=== PATIENT | female | born 1960 | race Caucasian/White ===

== ENCOUNTER → 2017-12-01 15:20 | Outpatient (CLI) | payer OTHER, SELFPAY ==
--- NOTE | 2017-12-01 15:20 | DT_ITS ---
This patient was seen during an EMR downtime November 27, 2017 - December 04, 2017. This patient may have a combination of paper and electronic documentation or all paper documentation. All documentation is viewable within the e-chart portion of [facility] (MM) for each patient visit.
--- NOTE | 2017-12-01 15:27 | CT_ITS ---
STUDY: CT LEFT FOOT REASON FOR EXAM: Female, 57 years old. Displaced fx of cuboid bone lt foot. RADIATION DOSAGE (If Supplied By Facility): CTDIvol = ( 15.35 ) mGy, DLP = ( 372.95 ) mGycm TECHNIQUE: Thin section transaxial imaging of the foot was obtained, with sagittal and coronal reconstructed images. Individualized dose optimization techniques were used for this CT. COMPARISON: None. FINDINGS: Fracture of the anterolateral distal tibial articular surface. This fracture is nondisplaced. Fracture of the dorsal lateral margin of the medial cuneiform bone. There is extension to the articular surface. Fracture fragments are noted in the tarsal joint space. Small avulsive fracture fragment of the dorsal lateral mid cuneiform bone. Fracture fragments extend into the joint space. Avulsive fracture of the anterolateral margin of the lateral cuneiform bone. Comminuted fracture of the cuboid bone. Small fracture fragments noted in the joint space. Fracture of the base of the fourth third and second metatarsal bone. These fractures extend to the articular surface. Fracture of the head of the fourth and fifth metatarsal bone. Normal visualized tibiotalar, subtalar, talonavicular, calcaneocuboid, and tarsometatarsal articulations. Normal metatarsophalangeal joint of the great toe. Normal tibial and fibular sesamoid bones. Normal interphalangeal joint of the great toe. Normal phalanges of the great toe. Normal second through fifth metatarsophalangeal joints. Normal interphalangeal joints and phalanges of the lesser toes. Soft tissue edema of the left ankle and foot. CT/Extremity Lower without Contra IMPRESSION: Fracture of the anterolateral distal tibial articular surface. This fracture is nondisplaced. Fracture of the dorsal lateral margin of the medial cuneiform bone. Fracture fragments are noted in the tarsal joint space. Small avulsive fracture fragment of the dorsal lateral mid cuneiform bone. Fracture fragments extend into the joint space. Avulsive fracture of the anterolateral margin of the lateral cuneiform bone. Comminuted fracture of the cuboid bone. Small fracture fragments noted in the joint space. Fracture of the base of the fourth third and second metatarsal bone. These fractures extend to the articular surface. Fracture of the head of the fourth and fifth metatarsal bone. Electronically Signed: Darnell Washburn MD at 16:48 EDT , Service support ,
== END ==
PROVIDERS: Family Provider Family Medicine; PCP Family Medicine; Visit Provider Specialist
DX: S92.212A Displaced fracture of cuboid bone of left foot, initial encounter for closed fracture (principal)
CPT/HCPCS: 73700

== ENCOUNTER → 2018-05-14 12:11 | Outpatient (CLI) | payer OTHER, SELFPAY ==
[2018-05-14 14:58] LABS: Anion Gap 9 (5-15); BUN 8 mg/dL (7-18); BUN/Creat Ratio 10.5 RATIO (10-20); Calcium,Total 9.2 mg/dL (8.5-10.1); Chloride 106 mmol/L (98-107); Cholesterol 183 mg/dL (200); Creatinine, Serum 0.76 mg/dL (0.55-1.02); EST Glomerular Filtration Rate 83 mL/min (>60); Est Glom Filt Rate - Afr Amer 101 mL/min (>60); Glucose 84 mg/dL (74-106); High Density Lipoprotein 82 mg/dL; Potassium 4.2 mmol/L (3.5-5.1); Sodium Level 139 mmol/L (136-145); Triglycerides 123 mg/dL; Very Low Density Lipoprotein 25 mg/dL (5-40)
== END ==
PROVIDERS: Family Provider Family Medicine; PCP Family Medicine; Referring Provider Family Medicine; Visit Provider Family Medicine
DX: I10 Essential (primary) hypertension (principal); Z13.220 Encounter for screening for lipoid disorders
CPT/HCPCS: 36415; 80048; 80061; 82306

== ENCOUNTER → 2018-08-09 08:00 | Outpatient (CLI) | payer OTHER, SELFPAY ==
[2018-08-09 10:25] LABS: Vitamin D,25 Hydroxy 57.7 ng/mL (29.95-100.01)
== END ==
PROVIDERS: Family Provider Family Medicine; PCP Family Medicine; Referring Provider Family Medicine; Visit Provider Family Medicine
DX: E55.9 Vitamin D deficiency, unspecified (principal)
CPT/HCPCS: 36415; 82306

== ENCOUNTER → 2020-11-27 | Outpatient (CLI) | payer OTHER, SELFPAY ==
[2020-12-01 13:25] LABS: HPV APTIMA, High Risk Negative (Negative)
[2020-12-01 13:27] LABS: HPV Reflexed? YES, CHARGE PATIENT
== END | disposition home or self-care (01) ==
PROVIDERS: Referring Provider Registered Nurse; Visit Provider Registered Nurse
DX: Z01.419 Encounter for gynecological examination (general) (routine) without abnormal findings (principal)
CPT/HCPCS: 87624; 88175; G0145

== ENCOUNTER → 2021-06-03 07:30 | Outpatient (CLI) | payer OTHER, SELFPAY ==
--- NOTE | 2021-06-03 07:34 | BI_ITS ---
MAMMOGRAPHY - BILATERAL SCREENING REASON FOR EXAM: Female, 61 years old. Routine annual screening examination. PERTINENT HISTORY: Aunt with breast cancer. Bilateral breast implants. TECHNIQUE: Digital bilateral breast james (3D mammographic acquisition) in the CC and MLO projections. 2-D mediolateral oblique (MLO) and craniocaudad (CC) views of both breasts were obtained. CAD: Full Field Digital Mammography with Computer Added Detection was performed. COMPARISON: Comparison is made with prior study dated 05/11/2016 and 08/29/2014. FINDINGS: Breast Composition: The breasts are almost entirely fatty. There are no dominant masses or suspicious calcifications. Stable appearance of the bilateral breast implants. No other significant abnormalities are identified. There has been no significant change since the prior study. BI/SCRN MAMM (CAD)W/JAMES BILAT IMPRESSION: Stable bilateral screening mammogram. Yearly follow-up mammogram recommended. (A) ASSESSMENT CATEGORY: BIRADS Category 2: Benign. A letter regarding these results will be sent to the patient by the facility within 30 days. Approximately 10% of breast cancers are not detected by mammography. A normal mammogram should not delay biopsy of a clinically suspicious abnormality. [id number] Electronically Signed: Gabriel Trimble MD at 8:31 EST , Service support ,
== END ==
PROVIDERS: PCP Family Medicine; Visit Provider Family Medicine
DX: Z12.31 Encounter for screening mammogram for malignant neoplasm of breast (principal); Z80.3 Family history of malignant neoplasm of breast
CPT/HCPCS: 77063; 77067

== ENCOUNTER → 2022-11-02 | Outpatient (CLI) | payer OTHER, SELFPAY ==
--- NOTE | 2022-11-02 09:28 | BI_ITS ---
MAMMOGRAPHY - BILATERAL SCREENING REASON FOR EXAM: Female, 62 years old. Routine annual screening examination. PERTINENT HISTORY: Aunt with breast cancer. Bilateral breast implants. TECHNIQUE: Digital bilateral breast james (3D mammographic acquisition) in the CC and MLO projections. 2-D mediolateral oblique (MLO) and craniocaudad (CC) views of both breasts were obtained. CAD: Full Field Digital Mammography with Computer Added Detection was performed. COMPARISON: Comparison is made with prior study June 03, 2021 and May 11, 2016. FINDINGS: Breast Composition: The breasts are almost entirely fatty. There are no dominant masses or suspicious calcifications. Stable appearance of the bilateral breast implants. No other significant abnormalities are identified. There has been no significant change since the prior study. BI/SCRN MAMM (CAD)W/JAMES BILAT IMPRESSION: Stable bilateral screening mammogram. Yearly follow-up mammogram recommended. (A) ASSESSMENT CATEGORY: BIRADS Category 2: Benign. A letter regarding these results will be sent to the patient by the facility within 30 days. Approximately 10% of breast cancers are not detected by mammography. A normal mammogram should not delay biopsy of a clinically suspicious abnormality. [id number] Electronically Signed: Gabriel Trimble MD at 10:42 EDT ,
--- NOTE | 2022-11-02 09:36 | BD_ITS ---
STUDY: DUAL ENERGY X-RAY ABSORPTIOMETRY / DXA REASON FOR EXAM: Female, 62 years old. [id number] TECHNIQUE: Bone Mineral Density (BMD) measurements of lumbar spine and bilateral hips were obtained. COMPARISON: None. FINDINGS: Lumbar Spine (L1-L4): g/cm2 (0.919) / T-score (-0.9) / Z-score (0.6) Findings are suggestive of normal bone density with a low fracture risk. Left Femur Total: g/cm2 (0.778) / T-score (-1.3) / Z-score (-0.3) Left Femoral Neck: g/cm2 (0.716) / T-score (-1.2) / Z-score (0.2) Right Femur Total: g/cm2 (0.755) / T-score (-1.5) / Z-score (-0.5) Right Femoral Neck: g/cm2 (0.688) / T-score (-1.5) / Z-score (-0.1) BD/Dexa Bone Density Study IMPRESSION: The patient is considered osteopenic as outlined below according to World Yemi Organization (WHO) criteria with a low fracture risk. Reference Information: The T-score is the number of standard deviations above or below the standard which is normal for young adults at their peak bone mineral density. The World Health Organization (WHO) interprets the T-scores as follows: Above -1 Normal bone density Between -1 and -2.5 Osteopenia Equal to / or below -2.5 Osteoporosis As a practical clinical guideline, osteopenia may be graded as follows: Mild -1 through -1.5 Moderate -1.6 through -2.0 Severe -2.1 through -2.4 The Z-score is the number of standard deviations above or below age-matched controls. A Z-score of less than -1.5 would be considered abnormal. References: 1. NIH Osteoporosis and Related Bone Diseases www osteo.org 2. International Society for Clinical Densitometry www iscd.org 3. National Osteoporosis Foundation www nof.org Electronically Signed: Gabriel Trimble MD at 9:02 EDT ,
== END | disposition home or self-care (01) ==
LOC: OPBI 09:25
PROVIDERS: PCP Family Medicine; Referring Provider Nurse Practitioner Family; Visit Provider Nurse Practitioner Family
DX: Z12.31 Encounter for screening mammogram for malignant neoplasm of breast (principal); Z78.0 Asymptomatic menopausal state
CPT/HCPCS: 77063; 77067; 77080

== ENCOUNTER → 2023-12-05 | Outpatient (CLI) | payer OTHER, SELFPAY ==
[2023-12-05 08:12] LABS: Mucous, Urine 0 SEEN /hpf (<or=2+); Red Blood Cells-Urine 0 SEEN /hpf (0-5)
[2023-12-05 10:03] LABS: Absolute Lymphocyte Count 2.19 X10^3/uL (0.83-4.51); Absolute Neutrophil Count 2.9 X10^3/uL (2.0-7.7); Basophil# 0.07 X10^3/uL; Basophil% 1.2 % (0-1); Eosinophil# 0.16 X10^3/uL; Eosinophils% 2.6 % (0-5); Hematocrit 42.2 % (37-47); Hemoglobin 14.2 g/dL (12.0-15.0); Lymphocyte # 2.19 X10^3/ul (0.83-4.51); Lymphocyte % 36.3 % (19-41); Mean Corp Hgb Conc 33.6 g/dL (32-36); Mean Corpuscular Hgb 30.6 pg (27.0-32.0); Mean Corpuscular Volume 90.9 fL (81-99); Mean Platelet Vol. 10.5 fl (6.2-12.0); Monocyte% 11.6 % (0-10); NRBC Flagged by Analyzer 0 % (0-5); Platelet Count 260 K/mm3 (150-450); RBC Distribution Width CV 13.6 % (11.6-14.6); RBC Distribution Width SD 45.6 fl (35.1-43.9); Red Blood Count 4.64 M/mm3 (4.2-5.4)
[2023-12-05 10:06] LABS: Color, Urine Yellow (Yellow); Glucose, Dipstick Normal (Normal); Ketone-Dipstick Negative (Negative); Leukocyte Esterase-Dipstick 25 /ul (Negative); Nitrite-Dipstick Negative (Negative); Occult Blood-Urine Negative /ul (Negative); Protein-Dipstick Negative (Negative); Urine Bilirubin Dipstick Negative (Negative); Urine Clarity Sl. Cloudy (Clear); Urine Urobilinogen Normal (Normal)
[2023-12-05 10:18] LABS: Bacteria 1+ /hpf (None Seen); Squamous Epithelial Cells - UA 5-10 SEEN /hpf (5-10); White Blood Cells 5-10 SEEN /hpf (0-5)
[2023-12-05 10:51] LABS: ALB/GLOB Ratio 1.1 RATIO (0.9-2.4); AST(SGOT) 21 U/L (15-37); Alanine Aminotransfer ALT/SGPT 28 U/L (13-56); Albumin, Serum 3.9 g/dL (3.2-5.0); Alkaline Phosphatase 72 U/L (45-117); Anion Gap 5 (5-15); BUN 17 mg/dL (7-18); BUN/Creat Ratio 20.4 RATIO (10-20); Calcium,Total 9.4 mg/dL (8.5-10.1); Chloride 102 mmol/L (98-107); Cholesterol 209 mg/dL (200); Creatinine, Serum 0.83 mg/dL (0.55-1.02); EST Glomerular Filtration Rate 74 mL/min (>60); Est Glom Filt Rate - Afr Amer 89 mL/min (>60); Globulin 3.6 g/dL (2.2-4.2); Glucose 88 mg/dL (74-106); High Density Lipoprotein 74 mg/dL; Potassium 3.3 mmol/L (3.5-5.1); Protein, Total 7.5 g/dL (6.4-8.2); Sodium Level 134 mmol/L (136-145); Thyroid Stim Hormone (TSH) 2.75 uIU/mL (0.358-3.74); Triglycerides 171 mg/dL; Very Low Density Lipoprotein 34 mg/dL (5-40)
[2023-12-05 11:08] LABS: Vitamin D,25 Hydroxy 23.7 ng/mL
== END | disposition home or self-care (01) ==
LOC: MTLAB 08:05
PROVIDERS: PCP Family Medicine; Referring Provider Family Medicine; Visit Provider Family Medicine
DX: I10 Essential (primary) hypertension (principal); E55.9 Vitamin D deficiency, unspecified
CPT/HCPCS: 36415; 80053; 80061; 81001; 82306; 84443; 85025

== ENCOUNTER → 2023-12-12 | Outpatient (CLI) | payer OTHER, SELFPAY ==
[2023-12-12 10:40] LABS: Anion Gap 10 (5-15); BUN 17 mg/dL (7-18); BUN/Creat Ratio 20.2 RATIO (10-20); Calcium,Total 9.4 mg/dL (8.5-10.1); Chloride 101 mmol/L (98-107); Creatinine, Serum 0.84 mg/dL (0.55-1.02); EST Glomerular Filtration Rate 73 mL/min (>60); Est Glom Filt Rate - Afr Amer 88 mL/min (>60); Glucose 104 mg/dL (74-106); Magnesium 2.2 mg/dL (1.6-2.6); Potassium 3.5 mmol/L (3.5-5.1); Sodium Level 138 mmol/L (136-145)
== END | disposition home or self-care (01) ==
LOC: MTLAB 08:01
PROVIDERS: PCP Family Medicine; Referring Provider Family Medicine; Visit Provider Family Medicine
DX: I10 Essential (primary) hypertension (principal)
CPT/HCPCS: 36415; 80048; 83735

== ENCOUNTER → 2023-12-22 | Outpatient (CLI) | payer OTHER, SELFPAY ==
--- NOTE | 2023-12-22 07:02 | BI_ITS ---
MAMMOGRAPHY - BILATERAL SCREENING 3-D TOMOSYNTHESIS REASON FOR EXAM: Female, 63 years old. screening PERTINENT HISTORY: No significant family history. TECHNIQUE: 2-D mammograms and 3-D Tomosynthesis of the breast (s) were performed. CAD was performed. COMPARISON: 11/02/2022 FINDINGS: The breast composition is composed of scattered fibroglandular density. Scattered benign calcifications are seen. No dense spiculated masses or suspicious microcalcifications are identified. No architectural distortion is identified. There is no skin thickening or retraction. There has been no significant change since the prior study. Bilateral retropectoral silicone implants appear intact. BI/SCRN MAMM (CAD)W/JAMES BILAT IMPRESSION: No mammographic signs of malignancy. Routine yearly mammograms recommended. ASSESSMENT CATEGORY: BIRADS Category 1: Negative. A letter regarding these results will be sent to the patient by the facility within 30 days. FOLLOW UP RECOMMENDATION: Yearly follow up mammogram recommended. (A) Approximately 10% of breast cancers are not detected by mammography. A normal mammogram should not delay biopsy of a clinically suspicious abnormality. Electronically Signed: Jarad Hill MD at 13:29 EDT ,
== END | disposition home or self-care (01) ==
LOC: OPBI 07:02
PROVIDERS: PCP Family Medicine; Referring Provider Family Medicine; Visit Provider Family Medicine
DX: Z12.31 Encounter for screening mammogram for malignant neoplasm of breast (principal)
CPT/HCPCS: 77063; 77067

== ENCOUNTER → 2024-06-05 | Outpatient (CLI) | payer OTHER, SELFPAY ==
[2024-06-05 07:27] LABS: Mucous, Urine 0 SEEN /hpf (<or=2+); Red Blood Cells-Urine 0 SEEN /hpf (0-5)
[2024-06-05 10:09] LABS: Absolute Lymphocyte Count 1.92 X10^3/uL (0.83-4.51); Absolute Neutrophil Count 2.9 X10^3/uL (2.0-7.7); Basophil# 0.09 X10^3/uL; Basophil% 1.6 % (0-1); Eosinophil# 0.09 X10^3/uL; Eosinophils% 1.6 % (0-5); Hematocrit 41.9 % (37-47); Hemoglobin 14.1 g/dL (12.0-15.0); Lymphocyte # 1.92 X10^3/ul (0.83-4.51); Mean Corp Hgb Conc 33.7 g/dL (32-36); Mean Corpuscular Hgb 31.4 pg (27.0-32.0); Mean Corpuscular Volume 93.3 fL (81-99); Mean Platelet Vol. 10.8 fl (6.2-12.0); Monocyte# 0.63 X10^3/uL; Monocyte% 11.2 % (0-10); NRBC Flagged by Analyzer 0 % (0-5); Neutrophil % 51.2 % (47-70); Platelet Count 224 K/mm3 (150-450); RBC Distribution Width CV 13.6 % (11.6-14.6); Red Blood Count 4.49 M/mm3 (4.2-5.4); White Blood Count 5.7 K/mm3 (4.4-11.0)
[2024-06-05 10:27] LABS: Vitamin D,25 Hydroxy 33.6 ng/mL
[2024-06-05 10:31] LABS: Color, Urine Yellow (Yellow); Glucose, Dipstick Normal (Normal); Ketone-Dipstick Negative (Negative); Leukocyte Esterase-Dipstick 25 /ul (Negative); Nitrite-Dipstick Negative (Negative); Occult Blood-Urine Negative /ul (Negative); Protein-Dipstick 15 mg/dl (Negative); Urine Bilirubin Dipstick Negative (Negative); Urine Clarity Sl. Cloudy (Clear); Urine Urobilinogen Normal (Normal)
[2024-06-05 10:32] LABS: ALB/GLOB Ratio 1.1 RATIO (0.9-2.4); AST(SGOT) 25 U/L (15-37); Alanine Aminotransfer ALT/SGPT 29 U/L (13-56); Albumin, Serum 3.9 g/dL (3.2-5.0); Alkaline Phosphatase 57 U/L (45-117); Anion Gap 8 (5-15); BUN 12 mg/dL (7-18); BUN/Creat Ratio 14.3 RATIO (10-20); Calcium,Total 9.5 mg/dL (8.5-10.1); Chloride 105 mmol/L (98-107); Cholesterol 210 mg/dL (200); Creatinine, Serum 0.84 mg/dL (0.55-1.02); EST Glomerular Filtration Rate 73 mL/min (>60); Est Glom Filt Rate - Afr Amer 88 mL/min (>60); Globulin 3.5 g/dL (2.2-4.2); Glucose 100 mg/dL (74-106); High Density Lipoprotein 88 mg/dL; Potassium 3.9 mmol/L (3.5-5.1); Protein, Total 7.4 g/dL (6.4-8.2); Sodium Level 137 mmol/L (136-145); Triglycerides 199 mg/dL; Very Low Density Lipoprotein 40 mg/dL (5-40)
[2024-06-05 10:38] LABS: Bacteria 1+ /hpf (None Seen); Squamous Epithelial Cells - UA 5-10 SEEN /hpf (5-10); White Blood Cells 0-5 SEEN /hpf (0-5)
== END | disposition home or self-care (01) ==
LOC: MTLAB 07:23
PROVIDERS: PCP Family Medicine; Referring Provider Family Medicine; Visit Provider Family Medicine
DX: I10 Essential (primary) hypertension (principal); E55.9 Vitamin D deficiency, unspecified
CPT/HCPCS: 36415; 80053; 80061; 81001; 82306; 84443; 85025

== ENCOUNTER 2024-08-04 06:18 | Emergency (ER) | payer OTHER, SELFPAY ==
[2024-08-04] VITALS (7 sets, daily range): BP systolic 115–159; BP diastolic 76–89; PULSE 57–91; RESP 14–16; TEMP 36.3; O2SAT 95–99; BMI 26.8
--- NOTE | 2024-08-04 06:27 | ED.VIS.CHEST ---
HPI <Dr. Turner Rivera, DO - Last Filed: 08/04/24 08:22> History of Present Illness Chief Complaint: Chest Pain Narrative Narrative: Chief complaint and HPI: Chest pain. 64-year-old female with past medical history of HTN presents for evaluation of chest pain. Patient states her chest pain began around 4 AM when she was getting ready to go to bed. Patient states that she accidentally fell asleep on the couch around 2 AM. She states she took 2 baby aspirin but the pain did not improve. She describes it as cramping and located under her left breast. She states that it radiates to her back. Associated symptom is nausea secondary to the pain. She denies any fever, chills URI symptoms, cough, shortness of breath, abdominal pain. Not a tobacco abuser. Denies a history of DVT/PE, blood clotting disorder, recent trauma or surgery, exogenous estrogen use, unilateral leg swelling, known malignancy, travel. Denies any bilateral lower extremity swelling or edema. Review of systems: See HPI Medications: As listed on the chart Allergies: As listed on the chart PFSH: Per chart Vital signs: As listed on the chart. Reviewed. Physical exam: Gen: A&O x3 Head: Normocephalic, atraumatic Eyes: No sclera icterus, conjunctiva clear ENT: Moist mucous membranes Neck: Trachea midline, No JVD CV: RRR, no murmurs, no peripheral edema, chest pain nonreproducible, Resp: Lungs CTA BL, no w/r/c GI: Abd soft, non-distended, non-tender, no r/r/g : No CVA tenderness Musc: Full ROM, no deformity, no midline spinal tenderness, no bony step-off, radial and ulnar pulses +2 bilaterally, Skin: Warm, dry Neuro: Alert, oriented, grossly intact, sensation intact Psych: Cooperative, appropriate mood and affect [facility] <Dr. Turner Rivera, DO - Last Filed: 08/04/24 08:22> [facility] Medical History (Updated 08/04/24 @ 06:23 by Giancarlo Boles) HTN (hypertension) Home Medications ?Medication ?Instructions ?Recorded ?Last Taken ?Type lisinopril 20 1 tab PO DAILY 08/04/24 Unknown History mg-hydrochlorothiazide 25 mg tablet Allergy/AdvReac Type Severity Reaction Status Date / Time codeine AdvReac Vomiting Verified 08/04/24 06:52 Social History Smoking Status: Never smoker EXAM <Dr. Turner Rivera, DO - Last Filed: 08/04/24 08:22> Physical Exam Const Vital Signs: 08/04/24 06:21 08/04/24 06:22 08/04/24 06:44 Temperature 97.3 F L Temperature Source Temporal Pulse Rate 70 Respiratory Rate 16 Respiratory Effort Normal Blood Pressure 159/89 H Blood Pressure Mean 112 Pulse Ox 98 97 Oxygen Delivery Method Room Air Room Air 08/04/24 07:18 08/04/24 07:59 08/04/24 08:56 Temperature Temperature Source Pulse Rate 57 L 91 Respiratory Rate 16 Respiratory Effort Blood Pressure 144/84 H 128/78 H 121/76 H Blood Pressure Mean 104 94 91 Pulse Ox 99 Oxygen Delivery Method 08/04/24 09:15 08/04/24 10:15 Temperature 97.3 F L Temperature Source Pulse Rate 70 67 Respiratory Rate 14 Respiratory Effort Blood Pressure 115/79 128/78 H Blood Pressure Mean 91 94 Pulse Ox 97 95 Oxygen Delivery Method Room Air <Dr. Tate Curran, DO - Last Filed: 08/04/24 16:12> Physical Exam Const Vital Signs: 08/04/24 06:21 08/04/24 06:22 08/04/24 06:44 Temperature 97.3 F L Temperature Source Temporal Pulse Rate 70 Respiratory Rate 16 Respiratory Effort Normal Blood Pressure 159/89 H Blood Pressure Mean 112 Pulse Ox 98 97 Oxygen Delivery Method Room Air Room Air 08/04/24 07:18 08/04/24 07:59 08/04/24 08:56 Temperature Temperature Source Pulse Rate 57 L 91 Respiratory Rate 16 Respiratory Effort Blood Pressure 144/84 H 128/78 H 121/76 H Blood Pressure Mean 104 94 91 Pulse Ox 99 Oxygen Delivery Method 08/04/24 09:15 08/04/24 10:15 Temperature 97.3 F L Temperature Source Pulse Rate 70 67 Respiratory Rate 14 Respiratory Effort Blood Pressure 115/79 128/78 H Blood Pressure Mean 91 94 Pulse Ox 97 95 Oxygen Delivery Method Room Air MDM <Dr. Turner Rivera, DO - Last Filed: 08/04/24 08:22> MDM MDM Narrative Medical decision making narrative: 64-year-old female with past medical history of HTN presents for evaluation of chest pain. Differential diagnosis includes but is not limited to ACS, electrolyte abnormality, myofascial spasm, PE, GERD, pancreatitis. Cardiac/respiratory workup ordered. Patient already received 2 baby aspirin prior to arrival therefore another 2 ordered. She was given Zofran and morphine for symptoms. NS bolus ordered. EKG reviewed see below. CBC without leukocytosis or anemia. Coagulation panel unremarkable. D-dimer unremarkable. The rest of the labs pending at this time. Final disposition pending oncoming physician Dr. Curran. Patient was signed out to him. EKG: Interpreted by me/EM physician: EKG shows normal sinus rhythm. No ST elevation. Heart rate 66. Diagnostic: Interpreted by me/EM physician: Chest x-ray without pneumonia, effusion, pneumothorax, cardiomegaly Lab Data Labs: Laboratory Results - last 24 hr 08/04/24 08/04/24 06:55 09:15 WBC 8.0 RBC 4.30 Hgb 14.0 Hct 39.5 MCV 91.9 MCH 32.6 H MCHC 35.4 RDW Std Deviation 44.8 H RDW Coeff of Rand 13.3 Plt Count 248 MPV 9.6 Immature Gran % (Auto) 0.400 Neut % (Auto) 66.9 Lymph % (Auto) 19.3 Nicollet % (Auto) 11.4 H Eos % (Auto) 1.1 Baso % (Auto) 0.9 Absolute Neuts (auto) 5.3 Absolute Lymphs (auto) 1.54 Nucleated RBC % 0 PT 12.3 INR 0.9 APTT 23.4 L D-Dimer Quant (PE/DVT) 0.44 Sodium 135 L Potassium 3.4 L Chloride 98 Carbon Dioxide 27.0 Anion Gap 10 BUN 18 Creatinine 0.78 Estim Creat Clear Calc 68.67 Est GFR (MDRD) Af Amer 95 Est GFR (MDRD) Non-Af 79 BUN/Creatinine Ratio 22.9 H Glucose 116 H Calcium 9.5 Total Bilirubin 0.60 AST 17 ALT 22 Alkaline Phosphatase 53 Troponin I High Sens 4 5 B-Natriuretic Peptide 39.1 Total Protein 7.7 Albumin 4.3 Globulin 3.4 Albumin/Globulin Ratio 1.3 Lipase 73 Radiography Diagnostic Testing: Clinical Impression(s) from Imaging Studies Chest X-Ray 08/04/24 07:04 IMPRESSION: No acute cardiopulmonary process is demonstrated. If there is persistent pain or clinical concern, short-term follow-up CT evaluation may be considered. Reading Location: [facility] <Dr. Tate Curran, DO - Last Filed: 08/04/24 16:12> [facility] Narrative Medical decision making narrative: 64-year-old female with past medical history of HTN presents for evaluation of chest pain. Differential diagnosis includes but is not limited to ACS, electrolyte abnormality, myofascial spasm, PE, GERD, pancreatitis. Cardiac/respiratory workup ordered. Patient already received 2 baby aspirin prior to arrival therefore another 2 ordered. She was given Zofran and morphine for symptoms. NS bolus ordered. EKG reviewed see below. CBC without leukocytosis or anemia. Coagulation panel unremarkable. D-dimer unremarkable. The rest of the labs pending at this time. Final disposition pending oncoming physician Dr. Curran. Patient was signed out to him. EKG: Interpreted by me/EM physician: EKG shows normal sinus rhythm. No ST elevation. Heart rate 66. Diagnostic: Interpreted by me/EM physician: Chest x-ray without pneumonia, effusion, pneumothorax, cardiomegaly Patient was turned over to me by Dr. Sweeney @ 8:30 AM Brief history: 64-year-old female here with chest pain Physical exam: No focal cardiopulmonary abnormalities. No pulse deficits. No pulsatile abdominal masses. No auscultated abdominal bruits. No calf tenderness. No lower extremity edema Labs and images reviewed (if obtained): I have personally reviewed the patient's chest x-ray. Chest x-ray is unremarkable for pulmonary edema, pneumothorax, pneumonia or focal cardiopulmonary abnormality. D-dimer negative making VTE less likely BNP within normal meds making heart failure less likely High-sensitivity troponin is negative, no evidence of myocardial ischemia x 2 CBC without leukocytosis, severe anemia, no thrombocytopenia. No coagulopathy CMP without evidence of acute kidney injury, significant electrolyte abnormality, anion gap to suggest end organ hypo-perfusion, no evidence of metabolic acidosis with a normal bicarbonate, no evidence of hepatobiliary obstructive pathology. The synthesis of the patient's history, physical exam, labs images suggest no acute life-limiting etiology specifically no sign of ACS, dissection, PE, pneumonia, pneumothorax, heart failure. On re-evaluation patient essentially asymptomatic. She is point for discharge home. MDM/plan: Discharge Lab Data Labs: Laboratory Results - last 24 hr 08/04/24 08/04/24 06:55 09:15 WBC 8.0 RBC 4.30 Hgb 14.0 Hct 39.5 MCV 91.9 MCH 32.6 H MCHC 35.4 RDW Std Deviation 44.8 H RDW Coeff of Rand 13.3 Plt Count 248 MPV 9.6 Immature Gran % (Auto) 0.400 Neut % (Auto) 66.9 Lymph % (Auto) 19.3 Nicollet % (Auto) 11.4 H Eos % (Auto) 1.1 Baso % (Auto) 0.9 Absolute Neuts (auto) 5.3 Absolute Lymphs (auto) 1.54 Nucleated RBC % 0 PT 12.3 INR 0.9 APTT 23.4 L D-Dimer Quant (PE/DVT) 0.44 Sodium 135 L Potassium 3.4 L Chloride 98 Carbon Dioxide 27.0 Anion Gap 10 BUN 18 Creatinine 0.78 Estim Creat Clear Calc 68.67 Est GFR (MDRD) Af Amer 95 Est GFR (MDRD) Non-Af 79 BUN/Creatinine Ratio 22.9 H Glucose 116 H Calcium 9.5 Total Bilirubin 0.60 AST 17 ALT 22 Alkaline Phosphatase 53 Troponin I High Sens 4 5 B-Natriuretic Peptide 39.1 Total Protein 7.7 Albumin 4.3 Globulin 3.4 Albumin/Globulin Ratio 1.3 Lipase 73 Radiography Diagnostic Testing: Clinical Impression(s) from Imaging Studies Chest X-Ray 08/04/24 07:04 IMPRESSION: No acute cardiopulmonary process is demonstrated. If there is persistent pain or clinical concern, short-term follow-up CT evaluation may be considered. Reading Location: [facility] Discharge Plan Triage Chief Complaint: Chest Pain ED Provider: Turner Rivera Dx/Rx/DC Orders Instructions: ED Chest Pain, Uncertain Cause Prescriptions: No Action lisinopril-hydrochlorothiazide 20-25 mg tablet 1 tab PO DAILY Primary Care Provider: Feliberto Alas Referrals: Feliberto Alas MD [Primary Care Provider] - Activity Restrictions/Additional Instructions: Thank you for trusting us with your care today! Your labs and images were reassuring. Specifically there is no sign of damage to your heart, heart failure, blood clots or other life-threatening abnormalities in your chest. Please a daily aspirin (81 mg) Please return to the emergency department if your symptoms change or worsen. Please follow with your primary care physician for further outpatient evaluation and management. Print Language: Estonian Disposition Disposition: Home, Self Care Discharge Date/Time: 08/04/24 10:18
--- NOTE | 2024-08-04 06:33 | EKG12_ITS ---
Test Reason : CP Blood Pressure : */* mmHG Vent. Rate : 66 BPM Atrial Rate : 66 BPM P-R Int : 166 ms QRS Dur : 80 ms QT Int : 442 ms P-R-T Axes : 78 -17 31 degrees QTcB Int : 463 ms Normal sinus rhythm Low voltage QRS Nonspecific ST abnormality Abnormal ECG Confirmed by SUSU BRUMFIELD, SHAYNE ([id number]), editor farm journal NEISHA RODRIGUEZ ([id number]) on 08/05/2024 11:06:51 AM Referred By: NELI Confirmed By: SHAYNE CRISTOBAL MD
[2024-08-04] MEDS: Ondansetron 4 MG/2 ML Vial IV (06:53)
[2024-08-04] MEDS: Morphine 4 MG/ML Syringe IV (06:53)
[2024-08-04] MEDS: Aspirin 81 MG TAB.CHEW 162 MG PO (06:55)
[2024-08-04] MEDS: 0.9% Normal Saline (1000mL) 1,000 ML 999 ML IV (06:55)
--- NOTE | 2024-08-04 07:04 | RAD_ITS ---
PROCEDURE: PA and lateral chest radiographs, two views REASON FOR EXAM: Chest pain TECHNIQUE: PA and lateral chest radiographs, two views COMPARISON: None. FINDINGS: The cardiomediastinal silhouette is within normal limits. Thoracic aorta mildly tortuous. No pneumothorax, focal airspace consolidation, or pleural effusion. Mild elevation right hemidiaphragm. Bones are osteopenic with degenerative changes in the spine. RAD/Chest PA and Lateral IMPRESSION: No acute cardiopulmonary process is demonstrated. If there is persistent pain or clinical concern, short-term follow-up CT evaluation may be considered. Reading Location: [facility]
[2024-08-04 07:11] LABS: Absolute Lymphocyte Count 1.54 X10^3/uL (0.83-4.51); Absolute Neutrophil Count 5.3 X10^3/uL (2.0-7.7); Basophil# 0.07 X10^3/uL; Basophil% 0.9 % (0-1); Eosinophil# 0.09 X10^3/uL; Eosinophils% 1.1 % (0-5); Hematocrit 39.5 % (37-47); Lymphocyte # 1.54 X10^3/ul (0.83-4.51); Lymphocyte % 19.3 % (19-41); Mean Corp Hgb Conc 35.4 g/dL (32-36); Mean Corpuscular Hgb 32.6 pg (27.0-32.0); Mean Corpuscular Volume 91.9 fL (81-99); Mean Platelet Vol. 9.6 fl (6.2-12.0); Monocyte# 0.91 X10^3/uL; Monocyte% 11.4 % (0-10); NRBC Flagged by Analyzer 0 % (0-5); Neutrophil # 5.33 X10^3/uL (2.7-7.7); Neutrophil % 66.9 % (47-70); Platelet Count 248 K/mm3 (150-450); RBC Distribution Width CV 13.3 % (11.6-14.6); RBC Distribution Width SD 44.8 fl (35.1-43.9)
[2024-08-04 07:19] LABS: International Normalized Ratio 0.9; Prothrombin Time (Protime)PT. 12.3 SECONDS (11.7-14.9)
[2024-08-04 07:20] LABS: Partial Thromboplast Time 23.4 Seconds (24.1-36.2)
[2024-08-04 07:36] LABS: D-Dimer Quantitative (DVT/PE) 0.44 FEU/ug/m (0.27-0.49)
[2024-08-04 08:31] LABS: ALB/GLOB Ratio 1.3 RATIO (0.9-2.4); AST(SGOT) 17 U/L (15-37); Alanine Aminotransfer ALT/SGPT 22 U/L (13-56); Albumin, Serum 4.3 g/dL (3.2-5.0); Alkaline Phosphatase 53 U/L (45-117); Anion Gap 10 (5-15); BUN 18 mg/dL (7-18); BUN/Creat Ratio 22.9 RATIO (10-20); Calcium,Total 9.5 mg/dL (8.5-10.1); Chloride 98 mmol/L (98-107); Creatinine, Serum 0.78 mg/dL (0.55-1.02); EST Glomerular Filtration Rate 79 mL/min (>60); Est Glom Filt Rate - Afr Amer 95 mL/min (>60); Estimated Creatinine Clearance 68.67 ml/min; Globulin 3.4 g/dL (2.2-4.2); Glucose 116 mg/dL (74-106); Lipase 73 U/L (73-393); Potassium 3.4 mmol/L (3.5-5.1); Protein, Total 7.7 g/dL (6.4-8.2); Sodium Level 135 mmol/L (136-145); Troponin-I HS (w/2H Reflex) 4 pg/mL (3.0-54.0)
[2024-08-04 09:06] LABS: Reflex Troponin-HS? (from REC) Y
[2024-08-04 09:19] LABS: BNP,B-Type NATRIURETIC PEPTIDE 39.1 pg/mL (0-100)
[2024-08-04 09:43] LABS: Troponin-I HS 5 pg/mL (3.0-54.0)
== END 2024-08-04 10:18 | disposition home or self-care (01) ==
PROVIDERS: Emergency Provider Surgery; PCP Family Medicine; Visit Provider Surgery
DX: R07.9 Chest pain, unspecified (principal); I10 Essential (primary) hypertension; Z79.899 Other long term (current) drug therapy
CPT/HCPCS: 71046; 80053; 83690; 83880; 84484; 85025; 85379; 85610; 85730; 93005; 96361; 96374; 96375; 99284; A4216; J2405

== ENCOUNTER 2025-05-04 14:01 | Emergency (ER) | payer BC, OTHER, SELFPAY ==
[2025-05-04 14:01] VITALS: BP 143/83; PULSE 73; RESP 16; TEMP 36.8; O2SAT 98; BMI 25.2
[2025-05-04 15:02] VITALS: BP 131/86; PULSE 65; RESP 18; O2SAT 97
--- NOTE | 2025-05-04 15:32 | EKG12_ITS ---
Test Reason : HIGH BP
--- NOTE | 2025-05-04 15:32 | RAD_ITS ---
PROCEDURE: RAD/Chest PA and Lateral
--- NOTE | 2025-05-04 15:33 | EX.ED.DYSGE1 ---
HPI History of Present Illness Chief Complaint: Hypertension Onset/Context/Timing Onset: Today Context: Gradual Onset Timing: Continuous Quality: Dizzy Location: Generalized Worsened by: Stress Relieved by: Tylenol Narrative Narrative: Patient presents with elevated blood pressures that she noticed today. Patient states she took her blood pressure at home and it was 137/99. Patient states she sat and relaxed and repeated her blood pressure and it was 139/99. Patient states she took a dose of amlodipine which she had from a previous prescription. Patient took her blood pressure after that and it was 155/99. Patient states she feels dizzy. Patient states that her blood pressure goes up with stress. Patient states she took some Tylenol which seemed to help with it. Patient denies any fevers or chills. Patient admits to a mild headache. Patient denies any chest pain or shortness of breath. Patient denies any nausea or vomiting. [facility] Medical History HTN (hypertension) Home Medications ?Medication ?Instructions ?Recorded ?Last Taken ?Type lisinopril 20 1 tab PO DAILY 08/04/24 Unknown History mg-hydrochlorothiazide 25 mg tablet Allergy/AdvReac Type Severity Reaction Status Date / Time codeine AdvReac Vomiting Verified 05/04/25 14:03 Surgical History no surgical history no surgical history Social History Smoking Status: Never smoker ROS ROS ED Constitutional Constitutional ED: Denies chills or fever(s) Eyes Eyes: Denies blurry vision or change in vision ENT ENT ED: Denies rhinorrhea or sore throat Cardiovascular Cardiovascular: Denies chest pain or palpitations Respiratory/Chest Respiratory/Chest: Denies cough or dyspnea Gastrointestinal Gastrointestinal: Denies nausea or vomiting Genitourinary Genitourinary ED: Denies dysuria or hematuria Musculoskeletal Musculoskeletal: Denies back pain or neck pain Integumentary Denies abscess or rash Neurologic Neurologic: Reports headache(s); Denies weakness Allergic/Immunologic Allergic/Immunologic ED: Denies mouth swelling or urticaria EXAM Physical Exam Const Vital Signs: 05/04/25 14:01 05/04/25 15:00 05/04/25 15:02 Temperature 98.2 F Temperature Source Oral Pulse Rate 73 65 Respiratory Rate 16 18 Respiratory Effort Normal Non-Labored Respiratory Pattern Normal Blood Pressure 143/83 H 131/86 H Blood Pressure Mean 103 101 Pulse Ox 98 97 Oxygen Delivery Method Room Air Room Air 05/04/25 17:00 05/04/25 18:05 Temperature 97.8 F Temperature Source Pulse Rate 59 L 59 L Respiratory Rate 14 20 H Respiratory Effort Respiratory Pattern Blood Pressure 134/87 H 137/83 H Blood Pressure Mean 102 101 Pulse Ox 98 98 Oxygen Delivery Method Room Air Positive well nourished and well developed General Appearance ED: well developed and NAD HEENT Reports moist mucous membranes Neck supple and no JVD Resp normal respiratory effort and clear to auscultation bilaterally Cardio regular rate and regular rhythm GI non-tender and non-distended Palpation: soft Extremity normal to inspection General Extremety ED: Negative for edema or tenderness General Extremity: Negative for edema Neuro oriented x3, CN's II-XII intact bilaterally and no sensory deficits noted Sensorium / Orientation: alert Motor Exam: strength 5/5 throughout Psych mental status grossly normal MDM MDM MDM Narrative Medical decision making narrative: Differential diagnosis includes hypertensive urgency, hypertensive emergency, cardiac dysrhythmia, cardiac ischemia, electrolyte abnormality, and anxiety. EKG will be obtained to assess for cardiac dysrhythmia and cardiac ischemia. Chest x-ray will be obtained to assess for pneumonia or bronchitis. CBC will be obtained to assess for leukocytosis and anemia. Basic metabolic profile will be obtained to assess for electrolyte abnormality renal function. High-sensitivity troponin will be obtained to assess for cardiac ischemia. 2-hour repeat high-sensitivity troponin will be obtained to assess for ongoing cardiac ischemia. Urinalysis will be obtained to assess for urinary tract infection and hematuria. History & Record Review Additional record(s) reviewed:: Prior ED visit and Prior labs Lab Data Attestation: I reviewed the patient's lab results. Lab results narrative: CBC was reviewed and was within normal limits. Basic metabolic profile was reviewed and was within normal limits. High-sensitivity troponin was reviewed and was less than 6. Urinalysis was reviewed. There are positive nitrites with 0-5 white blood cells. There is 4+ bacteria. Leukocyte esterase was negative. Labs: Laboratory Results - last 24 hr 05/04/25 05/04/25 05/04/25 16:05 16:48 17:35 WBC 6.6 RBC 4.03 L Hgb 12.9 Hct 38.1 MCV 94.5 MCH 32.0 MCHC 33.9 RDW Std Deviation 46.0 H RDW Coeff of Rand 13.2 Plt Count 272 MPV 9.6 Immature Gran % (Auto) 0.300 Neut % (Auto) 56.4 Lymph % (Auto) 32.6 Gregory % (Auto) 9.0 Eos % (Auto) 0.5 Baso % (Auto) 1.2 H Absolute Neuts (auto) 3.7 Absolute Lymphs (auto) 2.14 Nucleated RBC % 0 Sodium 137 Potassium 3.8 Chloride 100 Carbon Dioxide 26.4 Anion Gap 11 BUN 9 Creatinine 0.58 L Estim Creat Clear Calc 88.53 Est GFR (MDRD) Non-Af 101 BUN/Creatinine Ratio 15.5 Glucose 93 Calcium 9.5 Troponin T High Sens < 6 Troponin T Hi Sens 2 Hr 9 Urine Color Straw Urine Clarity Clear Urine pH 6.0 Ur Specific [place] 1.015 Urine Protein Negative Urine Glucose (UA) NEGATIVE Urine Ketones 5 H Urine Occult Blood 10 H Urine Nitrite Positive H Urine Bilirubin Negative Urine Urobilinogen Normal Ur Leukocyte Esterase Negative Urine RBC 0-5 SEEN Urine WBC 0-5 SEEN Ur Squamous Epith Cells 0-5 SEEN Urine Bacteria 4+ Urine Mucus 0 SEEN Radiography Chest X-Ray - ED: 2 View, Read by ED Physician, Read by Radiologist and No Acute Disease Diagnostic Testing: Clinical Impression(s) from Imaging Studies Chest X-Ray 05/04/25 15:32 IMPRESSION: No acute cardiopulmonary disease. Reading Location: [facility] EKG Initial EKG: Attestation: I personally reviewed and interpreted this EKG as follows: Interpretation: No Acute Injury Pattern and Sinus Bradycardia (57) Comments: EKG was obtained. On my independent interpretation, it showed a sinus bradycardia with a rate of 57. IA interval, QRS interval, and QTc intervals were all normal. [place] was normal. There are no acute ST or T wave changes. Prior EKG tracings: available for review Prior: Unchanged (08/04/2024) Additional Tests and Interventions Additional Tests or Interventions: Urine culture was ordered. Treatment and Re-Evaluation :: Patient was advised of her findings. Patient's repeat blood pressure was 128/96. Patient was instructed to continue to monitor her blood pressure. Patient was advised of signs and symptoms which should prompt return to the emergency department. Patient was instructed to follow-up with her primary care physician in 5 to 7 days for further evaluation and possible medication changes. Patient understood and was agreeable with the plan. All questions were answered. Discharge Plan Triage Chief Complaint: Hypertension ED Provider: Jairo Damian Dx/Rx/DC Orders Clinical Impression: Hypertension, Elevated blood pressure reading Instructions: ED Hypertension, Established Prescriptions: No Action lisinopril-hydrochlorothiazide 20-25 mg tablet 1 tab PO DAILY Primary Care Provider: Feliberto Alas Referrals: Feliberto Alas MD [Primary Care Provider, Family Practice] - 5-7 Days Print Language: Luxembourger Disposition Disposition: Home, Self Care Discharge Date/Time: 05/04/25 18:14
[2025-05-04 16:18] LABS: Hematocrit 38.1 % (37-47); Hemoglobin 12.9 g/dL (12.0-15.0); Immature Granulocytes Count 0.020 X10^3/uL (0.0-0.0); Mean Corp Hgb Conc 33.9 g/dL (32-36); Mean Corpuscular Volume 94.5 fL (81-99); Mean Platelet Vol. 9.6 fl (6.2-12.0); NRBC Flagged by Analyzer 0 % (0-5); Platelet Count 272 K/mm3 (150-450); RBC Distribution Width CV 13.2 % (11.6-14.6); RBC Distribution Width SD 46.0 fl (35.1-43.9); Red Blood Count 4.03 M/mm3 (4.2-5.4); White Blood Count 6.6 K/mm3 (4.4-11.0)
[2025-05-04 16:47] LABS: Anion Gap 11 (5-15); BUN 9 mg/dL (4-19); BUN/Creat Ratio 15.5 RATIO (10-20); Calcium,Total 9.5 mg/dL (7.6-11.0); Carbon Dioxide 26.4 mmol/L (21.0-32.0); Chloride 100 mmol/L (98-108); Estimated Creatinine Clearance 88.53 ml/min (50-250); Glucose 93 mg/dL (70-99); Potassium 3.8 mmol/L (3.3-5.1); Troponin T High Sensitivity < 6 ng/L (<=14)
[2025-05-04 16:59] LABS: Mucous, Urine 0 SEEN /hpf (<or=2+)
[2025-05-04 17:00] VITALS: BP 134/87; PULSE 59; RESP 14; O2SAT 98
[2025-05-04 17:06] LABS: Color, Urine Straw (Yellow); Glucose, Dipstick NEGATIVE (Normal); Urine Bilirubin Dipstick Negative (Negative)
[2025-05-04 17:07] LABS: Ketone-Dipstick 5 mg/dl (Negative); Leukocyte Esterase-Dipstick Negative /ul (Negative); Nitrite-Dipstick Positive (Negative); Occult Blood-Urine 10 /ul (Negative); Protein-Dipstick Negative (Negative); Specific Gravity, Urine 1.015 (1.002-1.030)
[2025-05-04 17:11] LABS: Red Blood Cells-Urine 0-5 SEEN /hpf (0-5); Squamous Epithelial Cells - UA 0-5 SEEN /hpf (5-10)
[2025-05-04 18:05] VITALS: BP 137/83; PULSE 59; RESP 20; TEMP 36.6; O2SAT 98
[2025-05-04 18:08] LABS: Troponin T High Sens 2 HR 9 ng/L (<=14)
== END 2025-05-04 18:14 | disposition home or self-care (01) ==
PROVIDERS: Emergency Provider Emergency Medicine; PCP Family Medicine; Visit Provider Emergency Medicine
DX: I10 Essential (primary) hypertension (principal); Z79.899 Other long term (current) drug therapy
CPT/HCPCS: 71046; 80048; 81001; 84484; 85025; 87086; 87088; 87186; 93005; 99284; A4216